=== PATIENT | female | born 1950 | race Caucasian/White ===

== ENCOUNTER 2024-06-09 11:25 | Outpatient (AMB) | payer OTHER, SELFPAY ==
--- NOTE | 2024-06-09 11:29 | MHC.OFFVIS ---
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 Complaints include pain over varicosities, swelling of lower extremities, cramping, fatigue, and heaviness of the lower extremities. It has been affecting there daily activities including walking. It is noted more so in left leg. Of note she has had bilateral knee replacements as well Patient prior venous ablation is by Dr. Horton nearly 5 years ago Patient denies any history of DVT/ PE - although many years ago when she lived in [place] did have concerns of a DVT. Workup at that time was negative Patient denies any history of phlebitis. Trial of compression includes - [id number] They now present for vascular evaluation regarding their varicose veins. [facility] Surgical History (Updated 06/09/24 @ 11:34 by DASHAWN Burr) History of knee replacement Social History (Updated 06/09/24 @ 11:34 by DASHAWN Burr) Patient Tobacco Use Status: Never used Tobacco Review of Systems Const Reports as per HPI ENT Reports no additional complaints Card Denies chest pain, Denies chest pain at rest and Denies chest pain with activity Resp Denies chest congestion and Denies cough GI Reports no additional complaints Musc Details: pain over varicosities, aching of lower extremities, swelling, cramping, heaviness and tiredness, itching Denies abnormal gait Skin/Breast Reports pruritus and Denies wounds Neuro Reports no additional complaints and Denies abnormal gait Psych Denies no additional complaints Physical Exam Vital Signs: BMI result Body Mass Index 37.7 Const General: cooperative, healthy appearing and comfortable Orientation/consciousness: oriented to person, oriented to place and oriented to time Neck Carotids: no bruits Chest Chest palpation & inspection: normal inspection of the chest and normal palpation of entire chest wall Resp Effort & Inspection: normal respiratory effort and able to speak in complete sentences Cardio Rate: regular rate Heart sounds: S1 normal heart sound present and S2 normal heart sound present Peripheral pulses: Peripheral pulses 2+ throughout GI Inspection: Yes normal to inspection Skin Other: +2 edema, spider telangiectasias left greater than right CEAP Classification C4 - skin color changes Ep - Etiology Primary As - superficial veins P - reflux General skin exam: dry skin Neuro General: oriented to person, oriented to place and oriented to time Extrem Right lower extremity: full ROM, normal capillary refill and edema Left lower extremity: full ROM, normal capillary refill and edema Psych Mental Status: mental status grossly normal Assessment & Plan Assessment & Plan (1) Varicose veins of left lower extremity with inflammation: Code(s): I83.12 - Varicose veins of left lower extremity with inflammation Category: Medical Plan: In short, the patient has evidence of venous insufficiency. I have discussed the pathophysiology with the patient. In addition I have provided informational material regarding venous disease to the patient. We have discussed conservative measures including compression, elevation, and exercise. I have also provided a handout regarding appropriate use of compression stockings and where to purchase good compression stockings as well. I have taken the liberty of ordering venous insufficiency testing with the patient. They will follow up with me after testing. The patient had an opportunity to ask questions regarding the treatment plan. All questions were answered. Imaging studies, laboratory studies and physical exam results were discussed and reviewed in detail. No major barriers to understanding were identified. The patient expressed understanding and agreement with the above treatment plan. The patient is aware they should contact our office by phone for worsening of the current condition or the appearance of new symptoms. Thank you for allowing me to participate in the vascular care of this patient. If you have any questions or concerns regarding the treatment for the above condition please do not hesitate to contact me. The office telephone contact is [phone]. This note is constructed using voice recognition software. While every effort has been made to ensure accuracy, dispute specialist errors may have been included. Thank you for allowing me to participate in the care of your patient. Yours sincerely, Kong Pepe MD, FACS, R.P.V.I. Orders: Orders US venous duplex LE BI 1 Week I83.12 - Varicose veins of left lower extremity with inflammation Coding Level of Care Code New Pt Level 4 (12340) Diagnoses Varicose veins of left lower extremity with inflammation I83.12
[2024-06-09 11:30] VITALS: BMI 37.7
--- OUTSIDE RECORDS SUMMARY | 2024-06-09 15:21 | XMS_ITS | Patient Health Record ---
Author Organization [facility] Address [address] [place] [address] Care Team Providers Care Counter Stacker Name Role Phone FRANK LAY Primary Care Provider Frank Lay Unavailable [phone] Allergies Allergen (clinical drug ingredient) Drug/Non Drug Allergy documented on EMR Reaction Allergy Type Onset Date Status Substance with sulfonamide structure and antibacterial mechanism of action (substance) Sulfa (uncoded) rash Allergy Active Reason For Referral No Information Medications Medication SIG (Take, Route, Frequency, Duration) Notes Start Date End Date Status Augmentin 875-125 MG 1 tablet Orally nj ry 12 hrs for 10 days Not-Taking Augmentin 875-125 MG 1 tablet Orally nj ry 12 hrs for 10 days Not-Taking Turmeric 500 MG as directed Orally Not-Taking Diflucan 150 MG 1 tablet Orally once a day for 1 days Active Calcium + D 500-1000-40 MG-UNT-MCG as directed Orally Active Fish Oil 1000 MG 1 capsule Orally Onc e a day for 30 day(s) Active Atorvastatin Calcium 40 MG 1 tablet Orally every evening for 90 days Active Vitamin C 500 MG as directed Orally Active Furosemide 20 MG 1 tablet Orally Once a day PRN for 90 days Active Fluticasone Propionate 50 MCG/ACT 1-2 spray in each nostril Nasally Once a day for 90 days 07/26/2020 Active Aspirin 81 MG 1 tablet Orally Once a day for 90 Not-Taking Immunizations Vaccine Route Administration Date Status Comme nts Tdap Unknown 03/20/2016 Administered SHINGRIX Unknown 11/13/2017 Administered Pneumococcal polysaccharide PPV23 Unknown 03/02/2018 Ad ministered Influenza, high dose seasonal Unknown 01/10/2019 Admini stered DTaP Unknown 04/29/2021 Administered Social History Tobacco Use: Social History Observation Description Date Details (start date - stop date) Never Smoker NA - NA Tobacco Use/Smoking Question Answer Notes Are you a nonsmoker Additional Findings: Tobacco Non-User Aggressive non-smoker Alcohol Screen (Audit-C) Question Answer Notes Did you have a drink contain ing alcohol in the past year? Yes How often did you have a dri nk containing alcohol in the past year? 2 to 4 times a month (2 points) How many drinks did you have on a typical day when you were drinking in the past year? 1 or 2 drinks (0 point) How often did you have 6 or more drinks on one occasion in the past year? Never (0 point) Points 2 Interpretation Negative Sexual History Question Answer Notes Had sex in the past 12 months (vaginal, oral, or anal)? No Have you ever had a Sexually transmitted disease ? No Tobacco use other than smoking: Question Answer Notes Are you an other tobacco user? No Section Notes: Raised in [facility] lived in [place] and raised her kids. Worked at [employer]. After divorce moved to [place] where friends lived. Then moved to [facility] to be with her daughter while she was having her babies. When they moved to [facility], Amanda move with them [place]Here for 5 years. When daughter moved to [facility], decided to retire from her job and move back to [facility]. 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 other daughter lives in [place] and has one child. Son lives in [place], first baby 2020 Raised in [facility] lived in [place] and raised her kids. Worked at [employer]. After divorce moved to [place] where friends lived. Then moved to [facility] to be with her daughter while she was having her babies. When they moved to [facility], Amanda move with them [place]Here for 5 years. When daughter moved to [facility] [place], decided to retire from her job and move back to [facility]. 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 other daughter lives in [place] and has one child. Son lives in [place], first baby 2020 Raised in [facility] lived in [place] and raised her kids. Worked at [employer]. After divorce moved to [place] where friends lived. Then moved to [facility] to be with her daughter while she was having her babies. When they moved to [facility], Amanda move with them [place]Here for 5 years. When daughter moved to [facility] [place], decided to retire from her job and move back to [employer]. other daughter lives in [place] and has one child. Son lives in [place], no children. Raised in [facility] lived in [place] and raised her kids. Worked at [employer]. After divorce moved to [place] where friends lived. Then moved to [facility] to be with her daughter while she was having her babies. When they moved to [facility], Amanda move with them THere for 5 years. When daughter moved to [facility] [place] [facility], decided to retire from her job and move back to [employer]. 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 other daughter lives in [place] and has one child. Son lives in [place], first baby 2020 Raised in [facility] lived in [place] and raised her kids. Worked at [employer]. After divorce moved to [place] where friends lived. Then moved to [facility] to be with her daughter while she was having her babies. When they moved to [facility], Amanda move with them [place]Here for 5 years. When daughter moved to [facility], decided to retire from her job and move back to [employer]. 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 other daughter lives in [place] and has one child. Son lives in [place], first baby 2020 Raised in [facility] lived in [place] and raised her kids. Worked at [employer]. After divorce moved to [place] where friends lived. Then moved to [facility] to be with her daughter while she was having her babies. When they moved to [facility], Amanda move with them THere for 5 years. When daughter moved to [facility] [place], decided to retire from her job and move back to [employer]. other daughter lives in [place] and has one child. Son lives in [place], no children. Raised in [facility] lived in [place] and raised her kids. Worked at [employer]. After divorce moved to [place] where friends lived. Then moved to [facility] to be with her daughter while she was having her babies. When they moved to [facility], Amanda move with them [place]Here for 5 years. When daughter moved to [facility] [place], decided to retire from her job and move back to [employer]. other daughter lives in [place] and has one child. Son lives in [place], no children. Raised in [facility] lived in [place] and raised her kids. Worked at [employer]. After divorce moved to [place] where friends lived. Then moved to [facility] to be with her daughter while she was having her babies. When they moved to [facility], Amanda move with them THere for 5 years. When daughter moved to [facility] [place], decided to retire from her job and move back to [employer]. other daughter lives in [place] and has one child. Son lives in [place], no children. Raised in [facility] lived in [place] and raised her kids. Worked at [employer]. After divorce moved to [place] where friends lived. Then moved to [facility] to be with her daughter while she was having her babies. When they moved to [facility], Amanda move with them THere for 5 years. When daughter moved to [facility] [place], decided to retire from her job and move back to [employer]. other daughter lives in [place] and has one child. Son lives in [place], no children. Raised in [facility] lived in [place] and raised her kids. Worked at [employer]. After divorce moved to [place] where friends lived. Then moved to [facility] to be with her daughter while she was having her babies. When they moved to [facility], Amanda move with them THere for 5 years. When daughter moved to [facility] [place], decided to retire from her job and move back to [employer]. other daughter lives in [place] and has one child. Son lives in [place], no children. Raised in [facility] lived in [place] and raised her kids. Worked at [employer]. After divorce moved to [place] where friends lived. Then moved to [facility] to be with her daughter while she was having her babies. When they moved to [facility], Amanda move with them THere for 5 years. When daughter moved to [facility], decided to retire from her job and move back to [employer]. 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 other daughter lives in [place] and has one child. Son lives in [place], first baby 2020 Raised in [facility] lived in [place] and raised her kids. Worked at [employer]. After divorce moved to [place] where friends lived. Then moved to [facility] to be with her daughter while she was having her babies. When they moved to [facility], Amanda move with them [place]Here for 5 years. When daughter moved to [facility] [place], decided to retire from her job and move back to [facility]. 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 other daughter lives in [place] and has one child. Son lives in [place], first baby 2020 Problems Problem Type SNOMED Code ICD Code Onset Dates Problem Status W/U Status Risk Notes Problem Impingement syndrome of shoulder region (515769362) Impingement syndrome of right shoulder (M75.41) Active confirmed Problem 91484204 Mixed incontinence (N39.46) Active confirmed greatly reduced with repair of cystocel and anterior coloporrhaphy 09/14/2015 Problem Herniation of rectum into vagina (370438575) Rectocele (N81.6) Active confirmed Problem 941515522 Medicare annual wellness visit, subsequent (Z00.00) Active confirmed Problem 129908937 Environmental allergies (Z91.09) Active confirmed Usually occur sprin and fall and effectively managed with fluticasone nasal spray. Problem 18625768 Sinusitis chronic, frontal (J32.1) Active confirmed 10/16/22 Has recurrent infection Last treated 3 years ago Had surgery on hher sinuses in 1986 by ENT in [place] give Augmentin and medrol dose jonny Problem 255247007 Primary osteoarthritis of both knees (M17.0) Active confirmed Tricompartment al. Had PRP injections and viscosupplemen tation. [place] TKR left knee [place]. Told she will eventually need right knee replaced. At this time is still able to adapt ADL's and does not need cane although feels better when she does. Wants referral to Dr Díaz . Problem 235495556 Obesity (BMI 30-39.9) (E66.9) Active confirmed has been on intermittent fast for past month Eats one healthy meal a day. Has lost 15 pounds. Problem 98994199 Elevated fasting blood sugar (R73.01) Active confirmed weight loss efforts. cont daily exercise. check labs. Problem 886993390 Pure hypercholesterol emia (E78.00) Active confirmed lipid panel reviewed with patient. continue weight loss efforts Discussed reducing amt of olive oil she cooks with. cont statin. Problem Relaxation of pelvic floor (105214808) Pelvic floor relaxation (N81.89) Active confirmed Problem Urge incontinence of urine (24650905) Urge incontinence of urine (N39.41) Active confirmed Problem Pure hypercholesterolem ia (309030960) Elevated cholesterol (E78.00) Active confirmed Problem 670427103 Venous insufficiency of left lower extremity (I87.2) Active confirmed used internet to show how to search for her compression hose. wear daily. keep appt for vein valve surgery with Dr Horton. 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 Ca+ and vitamin D supplement twice daily with a meal. Repeat DEXA in 2 years. Problem hypercholesterolem ia (disorder) (18419267) Hypercholesterem ia (E78.00) Active confirmed Plan Of Treatment Pending Test Test Name Order Date DEXA Hip and Spine 04/11/2022 MAMMOGRAM, SCREENING 04/11/2022 MAMMOGRAM, SCREENING 01/23/2020 Bone Density 02/22/2020 COMPREHENSIVE METABOLIC PANEL 10/24/2022 LIPID PROFILE 10/24/2022 Lipid Panel 03/18/2021 Comp. Metabolic Panel (14) 03/18/2021 Insurance Providers Payer Name Payer Address Payer Phone Subscriber Number Group Number Insured Name Patient Relationship to Insured Coverage Start Date Coverage End Date [facility] [address] [place] [address] [id number] Jayden Escamilla Self - patient is the insured Medical (General) History Medical History History ICD Code calcific tendonitis right shoulder Surgical History Surgery Date(Month/Year) Left Knee Replacement- In [place] Bladder Repair- Dr. Amin 2007 anterior coloporrhaphy and repair of cys tocele- In [place] 09/24/2015 Complete Hysterectomy 1984 ablation of greater saphenous vein 8 breast biopsy sinus surgery x2 arthroscopy right knee for meniscal tear 2011 age 20 had right breast bx for cyst.
--- OUTSIDE RECORDS SUMMARY | 2024-06-09 15:22 | XMS_ITS ---
Author Organization [facility] Address [address] [place] [address] Care Team Providers Care Building Construction Ironworker Name Role Phone FRANK LAY Primary Care Provider Frank Lay Unavailable [phone] REASON FOR VISIT refill Medications Medication SIG (Take, Route, Frequency, Duration) Notes Start Date End Date Status Atorvastatin Calcium 40 MG 1 tablet Oral ly every evening for 90 days Active Encounters Encounter Location Date Provider Diagnosis [facility] [address] [place] [address] 12/19/2022 FRANK LAY Plan Of Treatment Medication Medication Name Sig Start Date Stop Date Notes Atorvastatin Calcium 40 MG 1 tablet Oral ly every evening for 90 days Progress Notes * Jayden ESCAMILLA PDOB:[birth year] (72 yo F)Acc No.[id number]:12/19/2022 Patient:?Jayden Escamilla :1950???Age:72 Y???Sex:Female Address:[address] [place] [address] [address], [place], [address] * Refills? Refill Atorvastatin Calcium Tablet, 40 MG, Orally, 90, 1 tablet, every evening, 90 days, Refills=2 * true * Date:? Generated for Clifford talavera/Jarvis/eTransmitting on:?06/09/2024 03:21 PM EST
--- OUTSIDE RECORDS SUMMARY | 2024-06-09 15:22 | XMS_ITS ---
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 Name Role Phone FRANK LAY Primary Care Provider Frank Lay Unavailable [phone] REASON FOR VISIT Medicare wellness visit Encounters Encounter Location Date Provider Diagnosis [facility] [address] [place] [address] 04/27/2023 FRANK LAY Plan Of Treatment No Information Progress Notes * Jayden ESCAMILLA PDOB:[birth year] (73 yo F)Acc No.[id number]:04/27/2023 Progress Note Patient:?Jayden ESCAMILLA Provider:?Frank Lay MD :1950???Age:72 Y???Sex:Female D ate:04/27/2023 Address:[address] [place] [address], [facility] Subjective: * Chief Complaints: * ???1. Medicare wellness visi t. * Medical History:? Objective: * Vitals:? Assessment: Plan: * Treatment: * Billing Information: * Visit Code:? * Procedure Codes:? Care Plan Details* * Electronic signature of GULSHAN LAY MD on 06/09/2024 at 03:21 PM EST Sign off status: Pending * Provider:?Frank Lay MD Date:?2022 Generated for Clifford talavera/Jarvis/eTcarlozsmitting on:?06/09/2024 03:21 PM EST
== END 2024-06-09 11:49 | disposition home or self-care (01) ==
PROVIDERS: PCP Internal Medicine; Visit Provider Surgery Vascular Surgery
DX: I83.12 Varicose veins of left lower extremity with inflammation (principal)
CPT/HCPCS: 99204

== ENCOUNTER 2024-07-04 10:42 | Outpatient (REF) | payer OTHER, SELFPAY ==
--- NOTE | ~2024-07-04 | US_ITS ---
EXAMINATION: US LOWER EXTREMITY VENOUS (REFLUX EXAM), BILATERAL CLINICAL INFORMATION: Varices. COMPARISON: None. TECHNIQUE: Color flow triplex imaging and compression Doppler was performed to evaluate both the deep and the superficial systems bilaterally. To evaluate the superficial system, the examination was performed in the upright position. Color-flow Doppler ultrasound and compression ultrasound were utilized. In addition, maneuvers were utilized to demonstrate reflux. FINDINGS: 1. DEEP VENOUS ULTRASOUND OF THE RIGHT LOWER EXTREMITY: Common Femoral Vein: Compressible, normal respiratory variation and augmented flow. Femoral Vein: Compressible, normal color flow and augmentation. Popliteal Vein: Compressible, normal augmentation. Deep Reflux: There is no evidence of reflux in the deep system in either the common femoral vein, superficial femoral or the popliteal vein. There is no evidence of a Cabrera's cyst. 2. SUPERFICIAL ULTRASOUND WITH DOPPLER OF RIGHT LOWER EXTREMITY: GREAT SAPHENOUS VEIN: Saphenofemoral Junction: 0.6 cm; Reflux: 0 ms Proximal Thigh: 0.5 cm; Reflux: 0 ms Mid Thigh: 0.6 cm; Reflux: 0 ms Distal Thigh: 0.5 cm; Reflux: 0 ms At Knee: 0.3 cm; Reflux: 0 ms Proximal Calf: 0.3 cm; Reflux: 0 ms Mid Calf: 0.3 cm; Reflux: 0 ms Distal Calf: 0.2 cm; Reflux: 0 ms DUPLICATED MEDIAL GREAT SAPHENOUS VEIN: Diameter: 0.4 cm. Reflux: NA DUPLICATED LATERAL GREAT SAPHENOUS VEIN: Diameter: None imaged Reflux: NA SMALL SAPHENOUS VEIN: Saphenopopliteal Junction: 0.2 cm; Reflux: 0 ms Proximal: 0.2 cm; Reflux: 0 ms Distal: 0.2 cm; Reflux: 0 ms VEIN OF GIACOMINI: Size: NA Reflux: NA PERFORATORS: Location: At the calf. Size: 0.2-0.4 cm. Reflux: NA VARICOSITIES: Location: Mid to distal thigh. Size: 0.3-0.4 cm. Reflux: NA 3. DEEP VENOUS ULTRASOUND OF THE LEFT LOWER EXTREMITY: Common Femoral Vein: Compressible, normal respiratory variation and augmented flow. Femoral Vein: Compressible, normal color flow and augmentation. Popliteal Vein: Compressible, normal augmentation. Deep Reflux: There is no evidence of reflux in the deep system in either the common femoral vein, superficial femoral or the popliteal vein. There is no evidence of a Cabrera's cyst. 4. SUPERFICIAL ULTRASOUND WITH DOPPLER OF LEFT LOWER EXTREMITY: GREAT SAPHENOUS VEIN: Saphenofemoral Junction: 0.6 cm; Reflux: 0 ms Proximal Thigh: 0.2 cm; Reflux: 0 ms Mid Thigh: Not seen Distal Thigh: 0.2 cm; Reflux: 0 ms At Knee: Not seen Proximal Calf: Not seen Mid Calf: 0.2 cm; Reflux: 0 ms Distal Calf: 0.2 cm; Reflux: 0 ms DUPLICATED MEDIAL GREAT SAPHENOUS VEIN: Diameter: None imaged Reflux: NA DUPLICATED LATERAL GREAT SAPHENOUS VEIN: Diameter: 0.2 cm. Reflux: NA SMALL SAPHENOUS VEIN: Saphenopopliteal Junction: 0.3 cm; Reflux: 0 ms Proximal: Not seen Distal: Not seen VEIN OF GIACOMINI: Size: NA Reflux: NA PERFORATORS: Location: None imaged Size: NA Reflux: NA VARICOSITIES: Location: None Imaged Size: NA Reflux: NA US/US venous duplex LE BI IMPRESSION: Right: No venous insufficiency. Varices in the mid to distal thigh without reflux. Left: No venous insufficiency. Electronically signed by: Dontae Galvan MD 07/05/2024 11:29 AM BRENT
--- OUTSIDE RECORDS SUMMARY | 2024-07-04 12:06 | XMS_ITS ---
Author Organization [facility] Address [address] [place] [address] Care Team Providers Care Novelty Candy Maker Name Role Phone FRANK LAY Primary Care Provider Frank Lay Unavailable [phone] REASON FOR VISIT Medicare wellness visit Encounters Encounter Location Date Provider Diagnosis [facility] [address] [place] [address] 04/27/2023 FRANK LAY Plan Of Treatment No Information Progress Notes * Jayden ESCAMILLA PDOB:[birth year] (73 yo F)Acc No.[id number]:04/27/2023 Progress Note Patient:?Jayden ESCAMILLA Provider:?Frank Lay MD :1950???Age:72 Y???Sex:Female D ate:04/27/2023 Address:[address] [place] [address], [facility] Subjective: * Chief Complaints: * ???1. Medicare wellness visi t. * Medical History:? Objective: * Vitals:? Assessment: Plan: * Treatment: * Billing Information: * Visit Code:? * Procedure Codes:? Care Plan Details* * Electronic signature of GULSHAN LAY MD on 07/04/2024 at 12:06 PM EST Sign off status: Pending * Provider:?Frank Lay MD Date:?2022 Generated for Clifford talavera/Jarvis/eTransmitting on:?07/04/2024 12:06 PM EST
--- OUTSIDE RECORDS SUMMARY | 2024-07-04 12:06 | XMS_ITS | Patient Health Record ---
Author Organization [facility] Address [address] [place] [address] Care Team Providers Care Catalogue Clerk Name Role Phone FRANK LAY Primary Care Provider Frank Lay Unavailable [phone] Allergies Allergen (clinical drug ingredient) Drug/Non Drug [...] tobacco user? No Section Notes: Raised in [facility] lived in [place] and raised her kids. Worked at [employer]. After divorce moved to [place] where friends lived. Then moved to [facility] to be with her daughter while she was having her babies. When they moved to [facility], Amanda move with them [place] for 5 years. When daughter moved to [facility], decided to retire from her job and move back to [facility]. other daughter lives in [place] and has one child. Son lives in [place], no children. Raised in [facility] lived in [place] and raised her kids. Worked at [employer]. After divorce moved to [place] where friends lived. Then moved to [facility] to be with her daughter while she was having her babies. When they moved to [facility], Amanda move with them [place] for 5 years. When daughter moved to [facility], decided to retire from her job and move back to [facility]. other daughter lives in [place] and has one child. Son lives in [place], no children. Raised in [facility] lived in [place] and raised her kids. Worked at [employer]. After divorce moved to [place] where friends lived. Then moved to [facility] to be with her daughter while she was having her babies. When they moved to [facility], Amanda move with them [place] for 5 years. When daughter moved to [facility], decided to retire from her job and move back to [employer]. 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 other daughter lives in [place] and has one child. Son lives in [place], first baby 2020 Raised in [facility] lived in [place] and raised her kids. Worked at [employer]. After divorce moved to [place] where friends lived. Then moved to [facility] to be with her daughter while she was having her babies. When they moved to [facility], Amanda move with them [place] for 5 years. When daughter moved to [facility], decided to retire from her job and move back to [employer]. 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 other daughter lives in [place] and has one child. Son lives in [place], first baby 2020 Raised in [facility] lived in [place] and raised her kids. Worked at [employer]. After divorce moved to [place] where friends lived. Then moved to [facility] to be with her daughter while she was having her babies. When they moved to [facility], Amanda move with them [place] for 5 years. When daughter moved to [facility], decided to retire from her job and move back to [employer]. other daughter lives in [place] and has one child. Son lives in [place], no children. Raised in [facility] lived in [place] and raised her kids. Worked at [employer]. After divorce moved to [place] where friends lived. Then moved to [facility] to be with her daughter while she was having her babies. When they moved to [facility], Amanda move with them [place] for 5 years. When daughter moved to [facility], decided to retire from her job and move back to [employer]. 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 other daughter lives in [place] and has one child. Son lives in [place], first baby 2020 Raised in [facility] lived in [place] and raised her kids. Worked at [employer]. After divorce moved to [place] where friends lived. Then moved to [facility] to be with her daughter while she was having her babies. When they moved to [facility], Amanda move with them [place] for 5 years. When daughter moved to [facility], decided to retire from her job and move back to [employer]. 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 other daughter lives in [place] and has one child. Son lives in [place], first baby 2020 Raised in [facility] lived in [place] and raised her kids. Worked at [employer]. After divorce moved to [place] where friends lived. Then moved to [facility] to be with her daughter while she was having her babies. When they moved to [facility], Amanda move with them [place] for 5 years. When daughter moved to [facility], decided to retire from her job and move back to [employer]. 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 other daughter lives in [place] and has one child. Son lives in [place], first baby 2020 Raised in [facility] lived in [place] and raised her kids. Worked at [employer]. After divorce moved to [place] where friends lived. Then moved to [facility] to be with her daughter while she was having her babies. When they moved to [facility], Amanda move with them [place]Here for 5 years. When daughter moved to [facility], decided to retire from her job and move back to [employer]. other daughter lives in [place] and has one child. Son lives in [place], no children. Raised in [facility] lived in [place] and raised her kids. Worked at [employer]. After divorce moved to [place] where friends lived. Then moved to [facility] to be with her daughter while she was having her babies. When they moved to [facility], Amanda move with them [place]Here for 5 years. When daughter moved to [facility], decided to retire from her job and move back to [employer]. other daughter lives in [place] and has one child. Son lives in [place], no children. Raised in [facility] lived in [place] and raised her kids. Worked at [employer]. After divorce moved to [place] where friends lived. Then moved to [facility] to be with her daughter while she was having her babies. When they moved to [facility], Amanda move with them [place] for 5 years. When daughter moved to [facility], decided to retire from her job and move back to [employer]. other daughter lives in [place] and has one child. Son lives in [place], no children. Raised in [facility] lived in [place] and raised her kids. Worked at [employer]. After divorce moved to [place] where friends lived. Then moved to [facility] to be with her daughter while she was having her babies. When they moved to [facility], Amanda move with them [place] for 5 years. When daughter moved to [facility], decided to retire from her job and move back to [facility]. 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 other daughter lives in [place] and has one child. Son lives in [place], first baby 2020 Problems Problem Type SNOMED Code ICD Code Onset Dates Problem Status W/U Status Risk Notes Problem Impingement syndrome of shoulder region (809253559) Impingement syndrome of right shoulder (M75.41) Active confirmed Problem 64104074 Mixed incontinence (N39.46) Active confirmed greatly reduced with repair of cystocel and anterior coloporrhaphy 09/14/2015 Problem Herniation of rectum into vagina (413662505) Rectocele (N81.6) Active confirmed Problem 469004226 Medicare annual wellness visit, subsequent (Z00.00) Active confirmed Problem 818319373 Environmental allergies (Z91.09) Active confirmed Usually occur sprin and fall and effectively managed with fluticasone nasal spray. Problem 03293016 Sinusitis chronic, frontal (J32.1) Active confirmed 10/16/22 Has recurrent infection Last treated 3 years ago Had surgery on hher sinuses in 1986 by ENT in Will give Augmentin and medrol dose jonny Problem 286282189 Primary osteoarthritis of both knees (M17.0) Active confirmed Tricompartment al. Had PRP injections and viscosupplemen tation. had TKR left knee 10/[place]. Told she will eventually need right knee replaced. At this time is still able to adapt ADL's and does not need cane although feels better when she does. Wants referral to Dr Díaz . Problem 667525311 Obesity (BMI 30-39.9) (E66.9) Active confirmed has been on intermittent fast for past month Eats one healthy meal a day. Has lost 15 pounds. Problem 80879071 Elevated fasting blood sugar (R73.01) Active confirmed weight loss efforts. cont daily exercise. check labs. Problem 067853687 Pure hypercholesterol emia (E78.00) Active confirmed lipid panel reviewed with patient. continue weight loss efforts Discussed reducing amt of olive oil she cooks with. cont statin. Problem Relaxation of pelvic floor (569951779) Pelvic floor relaxation (N81.89) Active confirmed Problem Urge incontinence of urine (70545606) Urge incontinence of urine (N39.41) Active confirmed Problem Pure hypercholesterolem ia (243835088) Elevated cholesterol (E78.00) Active confirmed Problem 269084933 Venous insufficiency of left lower extremity (I87.2) Active confirmed used internet to show how to search for her compression hose. wear daily. keep appt for vein valve surgery with Dr Horton. 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 Ca+ and vitamin D supplement twice daily with a meal. Repeat DEXA in 2 years. Problem hypercholesterolem ia (disorder) (07133610) Hypercholesterem ia (E78.00) Active confirmed Plan Of [...] Insured Coverage Start Date Coverage End Date [facility]Comple [facility] [address] [place] [address] [id number] Jayden Escamilla Self - patient is the insured Medical (General) History Medical History History ICD Code calcific tendonitis right shoulder Surgical History Surgery Date(Month/Year) Left Knee Replacement- In [place] Bladder Repair- Dr. Amin 2007 anterior coloporrhaphy and repair of cys tocele- In [place] 09/24/2015 Complete Hysterectomy 1984 ablation of greater saphenous vein 8 breast biopsy sinus surgery x2 arthroscopy right knee for meniscal tear 2011 age 20 had right breast bx for cyst.
== END 2024-07-04 10:43 | disposition home or self-care (01) ==
LOC: HO.US 10:42
PROVIDERS: PCP Internal Medicine; Visit Provider Surgery Vascular Surgery
DX: I83.12 Varicose veins of left lower extremity with inflammation (principal)
CPT/HCPCS: 93970

== ENCOUNTER → 2024-07-04 10:44 | Outpatient (BNV) | payer OTHER, SELFPAY | PROVIDERS: PCP Internal Medicine; Visit Provider Radiology Diagnostic Radiology | DX: I83.899 Varicose veins of unspecified lower extremity with other complications (principal) | CPT/HCPCS: 93970 ==

== ENCOUNTER → 2024-07-28 15:17 | Outpatient (AMB) | payer OTHER, SELFPAY ==
[2024-07-28 15:18] VITALS: BMI 37.7
--- NOTE | 2024-07-28 15:18 | MHC.OFFVIS ---
Vital Signs 07/28/24 15:18 Height 5 ft 3 in Weight 213 lb BMI 37.7 Intake Visit Reasons: follow up s/p 07/04/24 Intake Note: follow up US 07/04/24, for Left LE VV w/ Hx of ablation and stripping. 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 She continues to endorse left greater than right lower extremity swelling and discomfort. She continues utilizing compression stockings and elevating her legs when she can. She does have a history of venous procedures in the left lower extremity with Dr. Horton approximately 5 years ago as well as a procedure in [place] previous to that timeframe. She has no new concerns today. [facility] Surgical History History of knee replacement Social History Patient Tobacco Use Status: Never used Tobacco Review of Systems Const Reports as per HPI and Denies weakness ENT Reports Normal hearing present and Denies dizziness Card Reports as per HPI, Denies chest pain, Denies chest pain at rest, Denies chest pain with activity, Denies dyspnea and Denies dyspnea on exertion Resp Reports as per HPI, Denies cough, Denies dyspnea and Denies dyspnea on exertion GI Reports as per HPI, Denies abdominal pain, Denies nausea and Denies vomiting Musc Denies numbness Skin/Breast Reports as per HPI, Denies erythema and Denies wounds Neuro Reports Normal hearing present, Denies dizziness, Denies numbness, Denies Sensory deficit (Neuro) and Denies weakness Psych Reports no additional complaints Endo Reports no additional complaints Physical Exam Vital Signs: BMI result Body Mass Index 37.7 Const General: healthy appearing and no acute distress Orientation/consciousness: patient oriented x3 HEENT Head: Yes normal to inspection Ears: hearing grossly normal bilaterally Mouth: Normal oral and palatal mucosa present Resp Effort & Inspection: normal respiratory effort and able to speak in complete sentences Auscultation: clear to auscultation bilaterally Cardio Jugular venous distension: no JVD Rate: regular rate Rhythm: regular rhythm Heart sounds: S1 normal heart sound present and S2 normal heart sound present Bruits: no abdominal aortic bruits, no carotid bruits, no femoral bruits and no renal bruits Peripheral pulses: Peripheral pulses 2+ throughout GI Inspection: Yes normal to inspection Palpation (GI): No Abdominal aortic bruit present Skin General skin exam: no rashes or lesions noted Wounds: no wounds Hair: normal Neuro General: patient oriented x3 Cranial nerves: Yes Normal hearing present Cognition (Neuro): normal cognition Gait exam (Neuro): Normal gait present Motor exam (neuro): 5/5 motor strength present throughout Sensory Exam: No Sensory deficit (Neuro) Extrem Other: Left lower extremity:+3 pitting edema noted. Difficult to palpate DP pulses due to edema. Discoloration noted around the ankles. Right lower extremity: +1/2 pitting edema noted. Palpable DP pulses. Right in cm: Thigh 64 Knee 56 Calf 50.5 Ankle 28 Left in cm: Thigh 67 Knee 53 Calf 53 Ankle 30 General: Yes normal to inspection, Yes full ROM, Yes capillary refill normal and Yes normal gait Results Reviewed Results Reviewed: Brief summary of venous insufficiency testing is as follows: right great saphenous vein: negative right small saphenous vein: negative right accessory vein: none present left great saphenous vein: negative left small saphenous vein: negative left accessory vein: none present Please note there is no evidence of any venous aneurysms or significant tortuosity Assessment & Plan Assessment & Plan (1) Lymphedema: Code(s): I89.0 - Lymphedema, not elsewhere classified Category: Medical Plan: Jayden is presenting as a follow up to venous insufficiency ultrasound, where there was no venous insufficiency found. In short the patient has late onset lymphedema. The patient has been on conservative treatment for at least 3 months with minimal relief. Patient has tried 30 mm of mercury compression garments, elevation, exercise, healthy diet, and doing manual says self MLD to the best of their ability for over 4 weeks but with no significant relief. She has been compliant with the program but has provided minimal relief. In addition, on physical exam, we are noticing hyperpigmentation, lymphorrhea, and hyperplasia. It appears that she has stage 2 lymphedema. Patient has completed multiple forms of conservative therapy; yet, significant symptoms remain. Patient requires the use of a pneumatic compression device, which we will assist in trying to have the patient obtain them. A pneumatic compression device will help reduce swelling and other lymphedema comorbidities. We will have her attend our lymphedema clinic in August. Thank you for allowing us to assist in this patient's care. (2) Varicose veins of left lower extremity with inflammation: Code(s): I83.12 - Varicose veins of left lower extremity with inflammation Category: Medical Plan: Jayden is presenting today as a follow up to venous insufficiency ultrasound, performed on 07/04/2024. There was no venous insufficiency found. She does continue to endorse left greater than right lower extremity swelling and discomfort. Coding Level of Care Code Est Pt Level 4 (72686) Diagnoses Lymphedema I89.0 Varicose veins of left lower extremity with inflammation I83.12 Comment Review of venous insufficiency ultrasound
--- OUTSIDE RECORDS SUMMARY | 2024-07-28 17:42 | XMS_ITS ---
Author Organization [facility] Address [address] [place] [address] Care Team Providers Care Sample Room Supervisor Name Role Phone FRANK LAY Primary Care Provider Frank Lay Unavailable [phone] REASON FOR VISIT Medicare wellness visit Encounters Encounter Location Date Provider Diagnosis [facility] [address] [place] [address] 04/27/2023 FRANK LAY Plan Of Treatment No Information Progress Notes * Jayden ESCAMILLA PDOB:[birth year] (74 yo F)Acc No.[id number]:04/27/2023 Progress Note Patient:?Jayden ESCAMILLA Provider:?Frank Lay MD :1950???Age:72 Y???Sex:Female D ate:04/27/2023 Address:[address] [place] [address], [facility] Subjective: * Chief Complaints: * ???1. Medicare wellness visi t. * Medical History:? Objective: * Vitals:? Assessment: Plan: * Treatment: * Billing Information: * Visit Code:? * Procedure Codes:? Care Plan Details* * Electronic signature of GULSHAN LAY MD on 07/28/2024 at 05:41 PM EDT Sign off status: Pending * Provider:?Frank Lay MD Date:?2022 Generated for Clifford talavera/Jarvis/eTransmitting on:?07/28/2024 05:41 PM EDT
--- OUTSIDE RECORDS SUMMARY | 2024-07-28 17:42 | XMS_ITS | Patient Health Record ---
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 No Section Notes: Raised in [facility] lived in [place] and raised her kids. Worked at [employer]. After divorce moved to [place] where friends lived. Then moved to [facility] to be with her daughter while she was having her babies. When they moved to [facility], Amanda move with them THere for 5 years. When daughter moved to [facility], decided to retire from her job and move back to [facility]. other daughter lives in [place] and has one child. Son lives in [place], no children. Raised in [facility] lived in [place] and raised her kids. Worked at [employer]. After divorce moved to [place] where friends lived. Then moved to [facility] to be with her daughter while she was having her babies. When they moved to [facility], Amanda move with them THere for 5 years. When daughter moved to [facility], decided to retire from her job and move back to [facility]. other daughter lives in [place] and has one child. Son lives in [place], no children. Raised in [facility] lived in [place] and raised her kids. Worked at [employer]. After divorce moved to [place] where friends lived. Then moved to [facility] to be with her daughter while she was having her babies. When they moved to [facility], Amanda move with them THere for 5 years. When daughter moved to [facility], decided to retire from her job and move back to [place]. other daughter lives in [place] and has one child. Son lives in [place], no children. Raised in [facility] lived in [place] and raised her kids. Worked at [employer]. After divorce moved to [place] where friends lived. Then moved to [facility] to be with her daughter while she was having her babies. When they moved to [facility], Amanda move with them THere for 5 years. When daughter moved to [facility], decided to retire from her job and move back to [place]. other daughter lives in [place] and has one child. Son lives in [place], no children. Raised in [facility] lived in [place] and raised her kids. Worked at [employer]. After divorce moved to [place] where friends lived. Then moved to [facility] to be with her daughter while she was having her babies. When they moved to [facility], Amanda move with them THere for 5 years. When daughter moved to [facility], decided to retire from her job and move back to [place]. other daughter lives in [place] and has one child. Son lives in [place], no children. Raised in [facility] lived in [place] and raised her kids. Worked at [employer]. After divorce moved to [place] where friends lived. Then moved to [facility] to be with her daughter while she was having her babies. When they moved to [facility], Amanda move with them THere for 5 years. When daughter moved to [facility], decided to retire from her job and move back to [place]. other daughter lives in [place] and has one child. Son lives in [place], no children. Raised in [facility] lived in [place] and raised her kids. Worked at [employer]. After divorce moved to [place] where friends lived. Then moved to [facility] to be with her daughter while she was having her babies. When they moved to [facility], Amanda move with them THere for 5 years. When daughter moved to [facility], decided to retire from her job and move back to [place]. 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 other daughter lives in [place] and has one child. Son lives in [place], first baby 2020 Raised in [facility] lived in [place] and raised her kids. Worked at [employer]. After divorce moved to [place] where friends lived. Then moved to [facility] to be with her daughter while she was having her babies. When they moved to [facility], Amanda move with them THere for 5 years. When daughter moved to [facility], decided to retire from her job and move back to [place]. 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 other daughter lives in [place] and has one child. Son lives in [place], first baby 2020 Raised in [facility] lived in [place] and raised her kids. Worked at [employer]. After divorce moved to [place] where friends lived. Then moved to [facility] to be with her daughter while she was having her babies. When they moved to [facility], Amanda move with them THere for 5 years. When daughter moved to [facility], decided to retire from her job and move back to [place]. 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 other daughter lives in [place] and has one child. Son lives in [place], first baby 2020 Raised in [facility] lived in [place] and raised her kids. Worked at [employer]. After divorce moved to [place] where friends lived. Then moved to [facility] to be with her daughter while she was having her babies. When they moved to [facility], Amanda move with them THere for 5 years. When daughter moved to [facility], decided to retire from her job and move back to [place]. 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 other daughter lives in [place] and has one child. Son lives in [place], first baby 2020 Raised in [facility] lived in [place] and raised her kids. Worked at [employer]. After divorce moved to [place] where friends lived. Then moved to [facility] to be with her daughter while she was having her babies. When they moved to [facility], Amanda move with them THere for 5 years. When daughter moved to [facility], decided to retire from her job and move back to [place]. 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 other daughter lives in [place] and has one child. Son lives in [place], first baby 2020 Raised in [facility] lived in [place] and raised her kids. Worked at [employer]. After divorce moved to [place] where friends lived. Then moved to [facility] to be with her daughter while she was having her babies. When they moved to [facility], Amanda move with them [place]Here for 5 years. When daughter moved to [facility], decided to retire from her job and move back to [facility]. 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 other daughter lives in [place] and has one child. Son lives in [place], first baby 2020 Problems Problem Type SNOMED Code ICD Code Onset Dates Problem Status W/U Status Risk Notes Problem Impingement syndrome of shoulder region (718418610) Impingement syndrome of right shoulder (M75.41) Active confirmed Problem 74750694 Mixed incontinence (N39.46) Active confirmed greatly reduced with repair of cystocel and anterior coloporrhaphy 09/14/2015 Problem Herniation of rectum into vagina (539693724) Rectocele (N81.6) Active confirmed Problem 125652226 Medicare annual wellness visit, subsequent (Z00.00) Active confirmed Problem 905747139 Environmental allergies (Z91.09) Active confirmed Usually occur sprin and fall and effectively managed with fluticasone nasal spray. Problem 55495599 Sinusitis chronic, frontal (J32.1) Active confirmed 10/16/22 Has recurrent infection Last treated 3 years ago Had surgery on hher sinuses in 1986 by ENT in Will give Augmentin and medrol dose jonny Problem 587651760 Primary osteoarthritis of both knees (M17.0) Active confirmed Tricompartment al. Had PRP injections and viscosupplemen tation. [place] TKR left knee 10[place]. Told she will eventually need right knee replaced. At this time is still able to adapt ADL's and does not need cane although feels better when she does. Wants referral to Dr Díaz . Problem 375542487 Obesity (BMI 30-39.9) (E66.9) Active confirmed has been on intermittent fast for past month Eats one healthy meal a day. Has lost 15 pounds. Problem 09844148 Elevated fasting blood sugar (R73.01) Active confirmed weight loss efforts. cont daily exercise. check labs. Problem 199318844 Pure hypercholesterol emia (E78.00) Active confirmed lipid panel reviewed with patient. continue weight loss efforts Discussed reducing amt of olive oil she cooks with. cont statin. Problem Relaxation of pelvic floor (155907858) Pelvic floor relaxation (N81.89) Active confirmed Problem Urge incontinence of urine (28988662) Urge incontinence of urine (N39.41) Active confirmed Problem Pure hypercholesterolem ia (644090570) Elevated cholesterol (E78.00) Active confirmed Problem 528314381 Venous insufficiency of left lower extremity (I87.2) Active confirmed used internet to show how to search for her compression hose. wear daily. keep appt for vein valve surgery with Dr Horton. 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 Ca+ and vitamin D supplement twice daily with a meal. Repeat DEXA in 2 years. Problem hypercholesterolem ia (disorder) (59807694) Hypercholesterem ia (E78.00) Active confirmed Plan Of [...] Insured Coverage Start Date Coverage End Date [facility] [address] [place] [address] [id number] Jayden Escamilla Self - patient is the insured Medical (General) History Medical History History ICD Code calcific tendonitis right shoulder Surgical History Surgery Date(Month/Year) Left Knee Replacement- In [place] Bladder Repair- Dr. Amin 2007 anterior coloporrhaphy and repair of cys tocele- In [place] 09/24/2015 Complete Hysterectomy 1984 ablation of greater saphenous vein 8 breast biopsy sinus surgery x2 arthroscopy right knee for meniscal tear 2011 age 20 had right breast bx for cyst.
== END ==
LOC: HO.HVS 15:17
PROVIDERS: PCP Internal Medicine; Visit Provider Physician Assistant Surgical
DX: I89.0 Lymphedema, not elsewhere classified (principal); I83.12 Varicose veins of left lower extremity with inflammation
CPT/HCPCS: 99214

== ENCOUNTER 2024-08-24 14:47 | Outpatient (AMB) | payer OTHER, SELFPAY ==
[2024-08-24 15:13] VITALS: BMI 37.7
--- NOTE | 2024-08-24 15:13 | MHC.OFFVIS ---
Vital Signs 08/24/24 15:13 Height 5 ft 3 in Weight 213 lb BMI 37.7 Intake Visit Reasons: Lymphedema clinic Intake Note: Lymphedema clinic for bilateral LE swelling, Left LE worse than Right LE. Started 5 or 6 years ago. Hx of venous procedures many years. Accompanied by: Self / Same As Patient Allergies Sulfa (Sulfonamide Antibiotics) Allergy (Intermediate, Verified 08/24/24 15:17) Rash HPI HPI Lymphedema clinic: Details: Jaydne is presenting today for our lymphedema clinic. She continues to endorse L>R lower extremity swelling and discomfort. She has had several vein procedures on that leg over the last 5-6y. She has no new concerns today. [facility] Surgical History History of knee replacement Social History Patient Tobacco Use Status: Never used Tobacco Review of Systems Const Reports as per HPI and Denies weakness ENT Reports Normal hearing present and Denies dizziness Card Reports as per HPI, Denies chest pain, Denies chest pain at rest, Denies chest pain with activity, Denies dyspnea and Denies dyspnea on exertion Resp Reports as per HPI, Denies cough, Denies dyspnea and Denies dyspnea on exertion GI Reports as per HPI, Denies abdominal pain, Denies nausea and Denies vomiting Musc Denies numbness Skin/Breast Reports as per HPI, Denies erythema and Denies wounds Neuro Reports Normal hearing present, Denies dizziness, Denies numbness, Denies Sensory deficit (Neuro) and Denies weakness Psych Reports no additional complaints Endo Reports no additional complaints Physical Exam Vital Signs: BMI result Body Mass Index 37.7 Const General: healthy appearing and no acute distress Orientation/consciousness: patient oriented x3 HEENT Head: Yes normal to inspection Ears: hearing grossly normal bilaterally Mouth: Normal oral and palatal mucosa present Resp Effort & Inspection: normal respiratory effort and able to speak in complete sentences Auscultation: clear to auscultation bilaterally Cardio Jugular venous distension: no JVD Rate: regular rate Rhythm: regular rhythm Heart sounds: S1 normal heart sound present and S2 normal heart sound present Bruits: no abdominal aortic bruits, no carotid bruits, no femoral bruits and no renal bruits Peripheral pulses: Peripheral pulses 2+ throughout GI Inspection: Yes normal to inspection Palpation (GI): No Abdominal aortic bruit present Skin General skin exam: no rashes or lesions noted Wounds: no wounds Hair: normal Neuro General: patient oriented x3 Cranial nerves: Yes Normal hearing present Cognition (Neuro): normal cognition Gait exam (Neuro): Normal gait present Motor exam (neuro): 5/5 motor strength present throughout Sensory Exam: No Sensory deficit (Neuro) Extrem Other: Left lower extremity:+3 pitting edema noted. Difficult to palpate DP pulses due to edema. Discoloration noted around the ankles. Right lower extremity: +1/2 pitting edema noted. Palpable DP pulses. General: Yes normal to inspection, Yes full ROM, Yes capillary refill normal and Yes normal gait Assessment & Plan Assessment & Plan (1) Lymphedema: Code(s): I89.0 - Lymphedema, not elsewhere classified Category: Medical Plan: Jayden is presenting today for our lymphedema clinic. She continues to endorse L>R lower extremity swelling and discomfort. Jayden is presenting today to be fitted for lymphedema pumps. They has had more than 2 months, starting on 06/09/24, of conservative treatments with elevation, compression stockings daily use with 20-30mmHg, and physical activity/home exercises with minimal relief. They continue to have persistent symptoms, despite conservative treatments. They are presenting with hyperpigmentation, lymphorrhea, hyperkeratosis, and 2+ pitting edema. They state the left leg is worse than the right leg. It appears that they have stage II lymphedema. Nuno, from [employer], will be fitting them for a pneumatic compression device, which will get mailed to their house. The patient has lymphedema that extends to her upper thigh and abdominal region. The basic pneumatic compression device is not adequate for the patient; it has been trialed but is not clinically appropriate due to the extensive lymphedema noted. The advanced compression device will be the best in this case. Thank you allowing us to care for the patient. Coding Level of Care Code Est Pt Level 3 (02970) Diagnoses Lymphedema I89.0
== END 2024-08-25 07:07 | disposition home or self-care (01) ==
LOC: HO.HVS 14:47
PROVIDERS: PCP Internal Medicine; Visit Provider Physician Assistant Surgical
DX: I89.0 Lymphedema, not elsewhere classified (principal)
CPT/HCPCS: 99213

== ENCOUNTER → 2024-08-24 14:47 | Outpatient (BNVA) | payer OTHER, SELFPAY | PROVIDERS: PCP Internal Medicine; Visit Provider Physician Assistant Surgical ==